=== PATIENT | female | born 1940 | race Caucasian/White ===

== ENCOUNTER → 2018-01-16 08:47 | Outpatient (POV) | payer SELFPAY | PROVIDERS: Visit Provider Nurse Practitioner Acute Care | DX: Z00.00 Encounter for general adult medical examination without abnormal findings (principal) ==

== ENCOUNTER → 2018-01-23 08:36 | Outpatient (CLI) | payer MEDICARE, SELFPAY ==
--- NOTE | 2018-01-23 08:45 | US_ITS ---
US abdomen limited History:Right upper quadrant pain with nausea Ordering Physician:Breonna Segal Patient Age: 77 years Comparison:None Findings: Pancreas:Unremarkable. No obvious mass or abnormal fluid collection. No ductal dilatation Liver:No focal liver lesions demonstrated. Homogeneous echogenicity. No intrahepatic biliary ductal dilatation evident Right Kidney:Unremarkable. Normal size and echogenicity. No hydronephrosis Gallbladder:There are numerous gallstones. No gallbladder wall thickening, pericholecystic fluid, or biliary dilatation is evident. Impression: Cholelithiasis
== END ==
PROVIDERS: PCP Family Medicine; Visit Provider Nurse Practitioner Acute Care
DX: R10.11 Right upper quadrant pain (principal)
CPT/HCPCS: 76705